=== PATIENT | female | born 1985 | race Caucasian/White ===

== ENCOUNTER 2024-10-06 18:18 | Emergency (ER) | payer OTHER ==
[~2024-10-06] VITALS: Ht 165.1 cm; Wt 64.2 kg
[2024-10-06 19:29] LABS: Urine Bacteria FEW /hpf (None Seen); Urine Blood Negative /uL (Negative); Urine Clarity Turbid (Clear); Urine Color Dark-Brown (Yellow); Urine Hyaline Cast FEW /lpf (0 - 2); Urine Mucus FEW (None Seen); Urine Protein, UAD Negative (Negative); Urine Sperm PRESENT /hpf (None Seen); Urine Squamous Epithelial Cell FEW /hpf (<5); Urine Urobilinogen Normal (Negative); Urine WBC 15 /hpf (0 - 5); Urine WBC Clumps PRESENT /hpf (None Seen); Urine pH 5.5 (5.0-9.0)
[2024-10-06] MEDS ORDERED: BACDST PO (20:39)
--- NOTE | 2024-10-06 20:39 | ED.PDOC ---
General HPI Comments This is a 39-year-old female presents to the ED chief complaint urinary symptoms. States about 3 weeks ago she called 1 of the tele dogs and was prescribed Flagyl for possible bacterial vaginosis however patient thought it was not antibiotic to treat her UTI symptoms. Also states currently with separation from her and has been having intermittent sexual encounters states symptoms usually start a day after. She is complaining of burning with urination, dysuria, denies vaginal discharge or pain. States concern she was exposed to a sexually transmitted disease. Denies nausea, vomiting, diarrhea or abdominal pain Chief Complaint: Urinary Time Seen by MD: 18:30 Reviewed notes: Nurses Notes, Medications, Allergies Allergies: Coded Allergies: NO KNOWN ALLERGIES (Unverified , 10/06/24) Home Meds Active Scripts Sulfamethoxazole W/Trimethopri (Bactrim Ds Tablet) 1 Tab Tb, 1 TAB PO BID for 7 Days, #14 TAB Prov:CIELO LITTLE HONG 10/06/24 Information Source: Patient Mode of Arrival: Ambulatory Past Medical History PAST MEDICAL HISTORY: Denies Surgical History: Denies all surgeries ART PSYCHOTHERAPIST OR THERAPIST History: No Pertinent ART PSYCHOTHERAPIST OR THERAPIST History Family History Family History: Reviewed,noncontributory to illness Social History Smoker: Non-Smoker Alcohol: Denies ETOH Use Drugs: Denies Drug Use Constitutional: denies: chills, diaphoresis, fatigue, fever, malaise, sweats, w eakness, others EENTM: denies: blurred vision, double vision, ear bleeding, ear discharge, ear drainage, ear pain, ear ringing, eye pain, eye redness, hearing loss, mouth pain, mouth swelling, nasal discharge, nose bleeding, nose congestion, nose pain, photophobia, tearing, throat pain, throat swelling, voice changes, others Respiratory: denies: cough, hemoptysis, orthopnea, SOB at rest, shortness of breath, SOB with excertion, stridor, wheezing, others Gastrointestinal: denies: abdomen distended, abdominal pain, blood streaked bowels, constipated, diarrhea, dysphagia, difficulty swallowing, hematemesis, melena, nausea, poor appetite, poor fluid intake, rectal bleeding, rectal pain, vomiting, others Genitourinary: reports: burning, dysuria, frequency; denies: abnormal vagina bleeding, dyspareunia, flank pain, hematuria, incontinence, pain, , vagina discharge, urgency, others Neurological: denies: dizziness, fainting, headache, left sided numbness, left sided weakness, numbness, paresthesia, pre-existing deficit, right sided numbness, right sided weakness, seizure, speech problems, tingling, tremors, weakness, others Musculoskeletal: denies: back pain, gout, joint pain, joint swelling, muscle pain, muscle stiffness, neck pain, others Integumetry: denies: bruises, change in color, change in hair/nails, dryness, laceration, lesions, lumps, rash, wounds, others Allergic/Immunocompromised: denies: Difficulty Healing, Frequent Infections, Hives, Itching, others Hematologic/Lymphatic: denies: anemia, blood clots, easy bleeding, easy bruising, swollen glands, others Endocrine: denies: excessive hunger, excessive sweating, excessive thirst, excessive urination, flushing, intolerance to cold, intolerance to heat, unexplained weight gain, unexplained weight loss, others Psychiatric: denies: anxiety, bipolar disorder, depression, hopeless, panic disorder, schizophrenia, sleepless, suicidal, others Physical Exam General Appearance: No Apparent Distress, Normal HEENT: Pharynx Normal Neck: Full Range of Motion, Non-Tender Respiratory: Lungs Clear, No Respiratory Distress, Normal Breath Sounds Cardiovascular: No Edema, No JVD, No Murmur, No Gallop, Normal Peripheral Pulses, Regular Rate/Rhythm Breast Exam: Deferred Gastrointestinal: No Organomegaly, Non Tender, No Pulsatile Mass, Normal Bowel Sounds, Soft Genitalia: Deferred Pelvic: Deferred Rectal: Deferred Extremities: Normal capillary refill, Normal inspection, Normal range of motion, Non-tender, No pedal edema Musculoskeletal : Apperance: Normal Neurologic: Alert, credit cashier II-XII nml as Tested, No Motor Deficits, Normal Affect, Normal Mood, No Sensory Deficits Cerebellar Function: Normal Reflexes: Normal Skin: Dry, Normal Color, Warm Lymphatic: No Adenopathy Was a procedure done? Was a procedure done?: No Differential Diagnosis Kidney stone (Female): N/A Urinary Problem (Male): Urethritis, Urolithiasis Urinary Problem (Female): Pyelonephritis, UTI, Vaginitis X-Ray, Labs, Meds, VS Vital Signs Date Time Temp Pulse Resp B/P (MAP) Pulse Ox O2 Delivery O2 Flow Rate FiO2 1/3/25 20:47 97.8 76 18 123/50 (74) 98 97.8 10/06/24 20:47 76 18 98 Room Air 10/06/24 18:52 98.3 81 18 130/61 (84) 99 Lab Test 10/06/24 18:48 Range/Units Urine Color Dark-brown Yellow Urine Clarity Turbid H Clear Urine pH 5.5 5.0-9.0 Urine Specific [place] 1.020 1.001-1.035 Urine Protein Negative Negative Urine Ketones Negative Negative Urine Blood Negative Negative /uL Urine Nitrite 1+ H Negative Urine Bilirubin 5+ Negative Urine Urobilinogen Normal Negative mg/dL Urine Leukocyte Esterase Negative Negative /uL Urine RBC 2 0 - 4 /hpf Urine WBC 15 0 - 5 /hpf Urine WBC Clumps Present None Seen /hpf Urine Squamous Epithelial Cells Few <5 /hpf Urine Bacteria Few H None Seen /hpf Urine Hyaline Casts Few 0 - 2 /lpf Urine Mucus Few None Seen Urine Sperm Present None Seen /hpf Urine Glucose Normal Normal mg/dL Current Medications Medications (Trade) Dose Ordered Sig/Zenon Route Start Time Stop Time Status Last Admin Ceftriaxone Sodium (Rocephin) 1,000 mg ONCE ONCE IM 10/06/24 20:45 10/06/24 20:46 DC 10/06/24 20:59 Azithromycin (Zithromax Tablet) 1,000 mg ONCE ONCE PO 10/06/24 20:45 10/06/24 20:46 DC 10/06/24 20:58 X-Ray, Labs, Meds, VS Comment UA with positive bacteria nitrates and sperm. Prophylactically treat for possible STD exposure. Patient given Rocephin 1 g IM and azithromycin a 1000 mg p.o.. Also treat for the UTI outpatient script Bactrim twice daily x7 days. Advised patient to avoid sexual encounters with her until he was fully tested and treated for possible STD and avoid sexual intercourse for least 7 days while in the medication. Consider protection such as a mail condom. Follow up with her PCP in 2-3 days as needed if no improvement consider further lab work. ER return precautions given patient indicated understanding agrees with discharge plan of care. Time of 1ST Reevaluation: 21:23 Reevaluation 1ST: Improved Patient Education/Counseling: Diagnosis, Treatment, Prognosis, Need For Follow Up Family Education/Counseling: No Family Present Departure 1 Departure Time of Disposition: 20:37 Impression: Primary Impression: Acute cystitis Qualified Codes: N30.00 - Acute cystitis without hematuria Additional Impression: Possible exposure to STD Disposition: HOME / SELF CARE / HOMELESS Condition: Stable e-Prescriptions Sulfamethoxazole W/Trimethopri (Bactrim Ds Tablet) 1 Tab Tb 1 TAB PO BID for 7 Days, #14 TAB Prov: CIELO LITTLE 10/06/24 Discharged With: Self Critical Care Note Critical Care Time?: No Stability Stability form required: CIELO Watters Oct 06, 2024 20:39
[2024-10-06 20:47] VITALS: BP 123/50; PULSE 76; RESP 18; TEMP 97.8; O2SAT 98
[2024-10-06] MEDS: AZITHROMYCIN 250 MG TAB PO ONE (20:58)
[2024-10-06] MEDS: cefTRIAXone SOD 1,000 MG VL IM ONE (20:59)
== END 2024-10-06 21:09 | disposition home or self-care (01) ==
LOC: ER 18:18
DX: N30.00 Acute cystitis without hematuria (principal)
CPT/HCPCS: 81001; 96372; 99283; J0696